=== PATIENT | male | born 1970 | race Caucasian/White ===

== ENCOUNTER → 2021-02-23 | Outpatient (CLI) | payer BC ==
[2015-10-05 15:08] VITALS: BP 129/85
[~2021-02-23] MED LIST: ASPI-482 PO; ATOR20TA PO; CIPR500T2 PO; CLOP75TA57 PO; HYDR-3164 PO; MESA0.372 PO; METH4TAB2 PO; PANT40TA77 PO; PANT40VI IVP
--- NOTE | 2021-02-23 14:49 | CARD ---
MR#: [id number] Date of Study: 02/23/2021 Ordering Physician: RICHAR STALLWORTH, Referring Physician: RICHAR STALLWORTH, Tech: Velma Liuelkindanielle, [facility] APPROVED REPORT EXAM: Two-dimensional and M-mode echocardiogram with Doppler and color Doppler. Other Information Quality : AverageHR: 66bpm Rhythm : NSR INDICATION CVA/TIA Echo Enhancing Agent Indication: Rule Out Septal Defect Agent/Amount Used: Agitated Saline 10mL RISK FACTORS Smoking 2D DIMENSIONS RVDd3.9 (2.9-3.5cm)Left Atrium(2D)3.7 (1.6-4.0cm) IVSd0.8 (0.7-1.1cm)Aortic Root(2D)3.5 (2.0-3.7cm) LVDd4.8 (3.9-5.9cm)LVOT Diameter2.1 (1.8-2.4cm) PWd0.7 (0.7-1.1cm)LVDs3.0 (2.5-4.0cm) FS (%) 37.6 %SV74.3 ml Aortic Valve AoV Peak Bryce.109.1cm/sAoV VTI23.4cm AO Peak GR.4.8mmHgLVOT Peak Bryce.90.7cm/s LVOT VTI 19.53cmAO Mean GR.3mmHg WILFRID (VMAX)2.87az5ZWC (VTI)2.94cm2 Mitral Valve MV E Jgtcyiuc25.0cm/sMV DECEL XYLV858ek MV A Gsaurlpx81.7cm/sMV VZO21dz E/A Ratio1.8MVA (PHT)4.07cm2 TDI E/Lateral E'6.6E/Medial E'9.0 Pulmonary Valve PV Peak Xnbamdxy15.6cm/sPV Peak Grad.4mmHg Tricuspid Valve TR P. Ahxznvvk303fj/sRAP OMCQGZNU7gaMh TR Peak Gr.65tiXzFLCN87ryRe Pulmonary Vein S1 Vjjlrhji59.6cm/sD2 Liosfngn45.8cm/s PVa ildcegqj063skew LEFT VENTRICLE The left ventricle is normal size. There is normal left ventricular wall thickness. The left ventricu lar systolic function is normal and the ejection fraction is within normal range. The Ejection Fracti on is 50-55%. There is normal LV segmental wall motion. Transmitral Doppler flow pattern is Grade II- pseudonormal filling dynamics. RIGHT VENTRICLE The right ventricle is normal size. There is normal right ventricular wall thickness. The right ventr icular systolic function is normal. ATRIA The left atrium size is normal. The right atrium size is normal. The interatrial septum is intact wit h no evidence for an atrial septal defect or patent foramen ovale as noted on 2-D or Doppler imaging. Bubble study is negative. AORTIC VALVE The aortic valve is normal in structure and function. Doppler and Color Flow revealed trace aortic re gurgitation. Calculated aortic valve area is 3.31 cm2 with maximum pressure gradient of 5 mmHg and me an pressure gradient of 3 mmHg. There is no significant aortic valvular stenosis. MITRAL VALVE The mitral valve is normal in structure and function. There is no evidence of mitral valve prolapse. There is no mitral valve stenosis. Doppler and Color-flow revealed trace mitral regurgitation. TRICUSPID VALVE The tricuspid valve is normal in structure and function. Doppler and Color Flow revealed trace tricus pid regurgitation with an estimated PAP of 29 mmHg. There is no tricuspid valve stenosis. PULMONIC VALVE The pulmonary valve is normal in structure and function. Doppler and Color Flow revealed trace pulmon ic valvular regurgitation. GREAT VESSELS The aortic root is normal in size. The ascending aorta is mildly dilated measuring 3.8 cm. The IVC is normal in size and collapses >50% with inspiration. PERICARDIAL EFFUSION There is no evidence of significant pericardial effusion. Critical Notification Critical Value: No <Conclusion> The left ventricle is normal size. The left ventricular systolic function is normal and the ejection fraction is within normal range. The Ejection Fraction is 50-55%. The interatrial septum is intact with no evidence for an atrial septal defect or patent foramen ovale as noted on 2-D or Doppler imaging. Bubble study is negative. Doppler and Color Flow revealed trace aortic regurgitation. There is no significant aortic valvular stenosis. Doppler and Color-flow revealed trace mitral regurgitation. Doppler and Color Flow revealed trace tricuspid regurgitation with an estimated PAP of 29 mmHg. Signed by : Travis Rico MD Electronically Approved : 02/23/2021 14:49:28
--- NOTE | 2021-02-23 17:41 | RAD ---
US DPLX CAROTID BILAT History: TIA Multiple grayscale, color, and duplex spectral analysis waveform sonographic images were acquired of the carotid, subclavian, and vertebral arteries. Comparison: None Findings: RIGHT SIDE: Peak systolic flow velocity of the distal CCA is 86 cm/sec. Peak systolic flow velocity of the ICA is 58 cm/sec. The ICA/CCA ratio is 0.7. Peak end diastolic flow velocity of the ICA is 26 cm/sec. The peak systolic velocity of the ECA is 119 cm/sec. Mild plaque formation is identified. LEFT SIDE: Peak systolic flow velocity of the distal CCA is 75 cm/sec. Peak systolic flow velocity of the ICA is 78 cm/sec. The ICA/CCA ratio is 1.0. Peak end diastolic flow velocity of the ICA is 30 cm/sec. Peak systolic flow velocity of the ECA is 119 cm/sec. Mild plaque formation is identified. Vertebral arteries: Bilateral vertebral arteries demonstrate antegrade flow. Impression: Mild atherosclerosis of the cervical ICAs with velocities consistent with less than 50 percent stenos is PQRS Compliance Statement - Stenosis calculations for carotid ultrasound studies are derived from jony idated velocity criteria which are known to correlate with the NASCET methodology. Electronically signed by: Abdullahi Mak MD (02/23/2021 5:38 PM) [facility]
== END ==
LOC: ECHO 10:22
PROVIDERS: ATTEND Internal Medicine Cardiovascular Disease
DX: I65.23 Occlusion and stenosis of bilateral carotid arteries (principal)
CPT/HCPCS: 93306; 93880